=== PATIENT | female | born 1960 | race African-American/Black ===

== ENCOUNTER 2025-06-26 05:33 | Emergency (ER) | payer OTHER ==
[~2025-06-26] VITALS: Ht 160 cm; Wt 79.4 kg
[2025-06-26 05:39] VITALS: O2SAT 98
[2025-06-26 07:06] LABS: BASOPHILS % 0.3 % (0.0-2.0); EOSINOPHILS % 0.8 % (0.0-5.0); HEMATOCRIT. 38.7 % (36.0-48.0); HEMOGLOBIN. 13.4 g/dL (12.0-16.0); LYMPHOCYTES % 19.2 % (20.0-50.0); MEAN PLATELET VOLUME 6.4 fl (7.4-10.4); MONOCYTES % 6.3 % (2.0-8.0); NEUTROPHILS % 73.4 % (40.0-76.0); PLATELET 333 x1000/uL (130-400); RED BLOOD CELL COUNT 4.43 mill/uL (4.2-5.4); RED CELL DISTRIBUTION WIDTH 13.1 % (11.6-14.6)
[2025-06-26 07:15] LABS: INR 1.0
[2025-06-26 07:18] LABS: CREATININE 0.6 mg/dL (0.6-1.0)
[2025-06-26 07:19] LABS: TROPONIN I HIGH SENSITIVITY 6 ng/L (3.0-34); UREA NITROGEN BLOOD 7 mg/dL (9-23)
[2025-06-26 07:20] LABS: ASPARTATE AMINOTRANSFERASE 20 IU/L (<34)
[2025-06-26 07:21] LABS: BILIRUBIN DIRECT 0.2 mg/dL (<=3.0); BILIRUBIN TOTAL 0.5 mg/dL (0.1-1.0); PROTEIN TOTAL 7.0 g/dL (6.0-8.3)
[2025-06-26] MEDS: POTASSIUM CHLORIDE 20MEQ TABLET SR PO SCH (09:03)
[2025-06-26] MEDS: ACETAMINOPHEN 325MG TABLET PO ONE (09:03)
[2025-06-26 09:11] VITALS: BP 138/68; PULSE 69; RESP 14; TEMP 36.8; O2SAT 100
[2025-08-12] MEDS ORDERED: LIP40 PO (13:59)
[2025-08-12] MEDS ORDERED: ASPI-1406 PO (13:59)
[2025-08-12] MEDS ORDERED: LEVO112T7 PO (13:59)
== END 2025-06-26 09:12 | disposition home or self-care (01) ==
LOC: ER 05:33 → CMPBEDREQ 12:15
DX: S00.93XA Contusion of unspecified part of head, initial encounter (principal); E87.6 Hypokalemia; R42 Dizziness and giddiness; F17.210 Nicotine dependence, cigarettes, uncomplicated; E03.9 Hypothyroidism, unspecified; I10 Essential (primary) hypertension; Z79.82 Long term (current) use of aspirin; W01.0XXA Fall on same level from slipping, tripping and stumbling without subsequent striking against object, initial encounter; Y93.89 Activity, other specified; Y92.89 Other specified places as the place of occurrence of the external cause; Y99.8 Other external cause status
CPT/HCPCS: 36415; 71045; 80048; 80076; 83735; 84443; 84484; 85025; 93005; 99285